=== PATIENT | female | born 1955 | race Caucasian/White ===

== ENCOUNTER 2023-05-30 08:31 | Outpatient (CLI) | payer OTHER, SELFPAY ==
--- OUTSIDE RECORDS SUMMARY | 2023-05-30 08:39 | XMS_ITS | Patient Health Record ---
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 Role Phone Hao Alexandera Primary Care Provider ALLERGIES Allergen (clinical drug ingredient) Drug/Non Drug Allergy documented on EMR Reaction Allergy Type Onset Date Status residivore (uncoded) Unknown Allergy Active REASON FOR REFERRAL No Information MEDICATIONS Medication SIG (Take, Route, Fr equency, Duration) Notes Start Date End Date Status Acyclovir Active Estrace 0.1 MG/GM as directed Vaginal twice a week for 90 days 05/30/2021 Active Estring Active Valium 10 MG 1/2 to 1 tablet as n eeded vaginally BID PRN for 5 days 07/25/2021 Act dasia Estradiol 0.025 MG/24HR 1 patch to skin Transdermal Two times a Week for 30 day(s) 06/30/2021 Active Prometrium 100 MG one capsule Orally n ightly for 30 days 06/30/2021 Active SOCIAL HISTORY Tobacco Use: Social History Observation Description Date Details (start date - stop date) Never Smoker NA - NA Sex Assigned At : Social History Observation Description Sex Assigned At Unknown Tobacco Use/Smoking Question Answer Notes Are you a nonsmoker Alcohol Screen (Audit-C) Question Answer Notes Did you have a drink containing alcohol in the p ast year? 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 73430220 Problem Female climacteric state (N95.1) Active confirmed Female climacteric state (087709629) Problem Anorgasmia of female (F52.31) Active confirmed 87818982 Problem Dyspareunia in female (N94.10) Active confirmed 74290826 Problem Vaginal atrophy (N95.2) Active confirmed 809807330 Problem PFD (pelvic floor dysfunction) (M62.89) Active confirmed 765253862 Problem Climacteric (N95.1) Active confirmed Menopause (924674441) PLAN OF TREATMENT No Information Insurance Providers Payer Name Payer Address Payer Phone Subscriber Number Group Number Insured Name Patient Relationship to Insured Coverage Start Date Coverage End Date [employer] (Ins Bill) [address] [place] [phone] [id number] Maxine Al Self - patient is the insured MEDICAL (GENERAL) HISTORY Medical History History ICD Code Hx Herpes Bladder Infections Surgical History Surgery Date(Month/Year) D & C 2013
--- NOTE | 2023-05-30 09:15 | CRLHL7_ITS ---
For Patients: As a result of the Century Cures Act, medical imaging exams and procedure reports are released immediately into your electronic medical record. You may view this report before your referring provider. If you have questions, please contact your health care provider. INDICATION: Pancreatic cyst. TECHNIQUE: Abdominal MRI with T1 in- and out of phase, T2, diffusion weighted, and progressively delayed post-contrast images. Intravenous gadolinium administered. Heavily T2 weighted 2D and 3D MRCP images also performed. FINDINGS: No fatty infiltration of the liver. A few small scattered cysts in the liver with the largest located in segment 7 measuring 1.4 cm. No other focal liver lesions identified. No abnormalities identified in the visualized portions of the spleen, adrenal glands, and kidneys. No hydronephrosis. No adenopathy. 1.0 x 0.5 x 0.4 cm cyst extending off the head of the pancreas. The pancreas is otherwise unremarkable. No intra or extrahepatic bile duct dilation with the common bile duct measuring 5 mm. No filling defects in the biliary system. Normal size of the main pancreatic duct. Impression : 1. 1.0 x 0.5 x 0.4 cm cyst extending off the head of the pancreas. Recommend follow up MRI in 1-2 years for documentation of stability. Management of Incidental Pancreatic Cysts: A White Paper of the ACR Incidental Findings Committee. Journal of the [employer]. Volume 14, Number 7, March 2017, pages 911-92. Dictated by Brandan Johnson MD @ 06/04/2023 2:09:19 PM (Electronically Signed)
== END 2023-05-30 08:32 | disposition home or self-care (01) ==
PROVIDERS: Visit Provider Internal Medicine Gastroenterology
DX: K86.2 Cyst of pancreas (principal)
CPT/HCPCS: 74183; A9575